=== PATIENT | male | born 1985 | race Caucasian/White ===

== ENCOUNTER → 2020-06-08 | Outpatient (CLI) | payer BC | LOC: M.MRI 08:15 | PROVIDERS: ATTEND Specialist | DX: M25.512 Pain in left shoulder (principal); M25.60 Stiffness of unspecified joint, not elsewhere classified ==

== ENCOUNTER → 2021-06-11 | Outpatient (CLI) | payer BC | LOC: M.MRI 13:12 | PROVIDERS: ATTEND Specialist | DX: M47.24 Other spondylosis with radiculopathy, thoracic region (principal); M47.22 Other spondylosis with radiculopathy, cervical region; G89.29 Other chronic pain ==